=== PATIENT | female | born 1970 | race Caucasian/White ===

== ENCOUNTER 2018-09-27 05:33 | Day surgery (SDC) | payer BC ==
[2018-09-23 18:25] VITALS: BMI 27.4
--- NOTE | 2018-09-27 07:36 | HP ---
History & Physical Update - Physical Physical: No Change - Assessment Assessment: No Change - Plan Plan: No Change (H&P reviwed, no changes)
[2018-09-27] MEDS ORDERED: ROCURONIUM BROMIDE 50 MG/5 ML SYRINGE ONE (11:04)
[2018-09-27] MEDS ORDERED: fentaNYL CITRATE 250 MCG/5 ML VIAL ONE (11:04)
[2018-09-27] MEDS ORDERED: PROPOFOL 20 ML ONE (11:04)
[2018-09-27] MEDS ORDERED: MIDAZOLAM HCL 2 MG/2 ML SINGLE DOSE VIAL ONE (11:05)
[2018-09-27] MEDS ORDERED: KETOROLAC TROMETHAMINE 30 MG/1 ML VIAL ONE (11:54)
[2018-09-27] MEDS ORDERED: DEXAMETHASONE SOD PHOSPHATE 4 MG/1 ML VIAL ONE (11:54)
[2018-09-27] MEDS ORDERED: oxyCODONE HCL 5 MG TABLET PO PRN ×3 (12:14→12:56)
[2018-09-27] MEDS ORDERED: ONDANSETRON 4 MG/2 ML VIAL IVPUSH PRN ×2 (12:14→12:56)
[2018-09-27] MEDS ORDERED: LACTATED RINGERS SOLUTION 1,000 ML IV SCH (12:15)
[2018-09-27] MEDS ORDERED: ACETAMINOPHEN INJECTION 100 ML IVPB ONE (12:37)
[2018-09-27] MEDS ORDERED: ACETAMINOPHEN 1000 MG/100 ML VIAL (NON FORMULARY) IVPB ONE (12:50)
[2018-09-27] MEDS ORDERED: IBUPROFEN 600 MG TABLET (FP) PO PRN (12:56)
[2018-09-27] MEDS ORDERED: IBUPROFEN 800 MG/8 ML IJ IVPB PRN (12:56)
[2018-09-27] MEDS ORDERED: ELECTROLYTE-148 SOLN 1,000 ML IV SCH (13:00)
--- NOTE | 2018-09-27 13:00 | OP ---
Operative Note - Note: Operative Date: 09/27/18 Pre-Operative Diagnosis: EM polyp Operation: hysteroscopy , EM polypectomy Findings: endocervical and EM polyp, EM adhesions Electromechanisms Design Drafter: Alfonso Zavala Anesthesia: General Specimens Removed: EM polyp. EM curetting Estimated Blood Loss (mls): 50 Operative Report Dictated: Yes
[2018-09-27 16:37] VITALS: BP 123/79; PULSE 64; TEMP 97.9
--- NOTE | 2018-09-28 11:10 | OP ---
DATE OF OPERATION: 09/27/2018 PREOPERATIVE DIAGNOSIS: Endometrial polyp, rule out submucous myoma. POSTOPERATIVE DIAGNOSIS: Endometrial polyp and uterine adhesion. SURGEON: Alfonso Zavala MD ANESTHESIA: General. ESTIMATED BLOOD LOSS: 50 mL. PROCEDURE: Hysteroscopy, endometrial polypectomy, and dilatation and curettage. OPERATIVE REPORT: Patient was taken to the operating room under adequate general anesthesia in dorsal lithotomy position. Examination under anesthesia revealed external genitalia to be normal. Vagina was normal. Cervix was clean, no gross lesion. Uterus was normal size. Adnexa, no masses were palpable. Then, with a weighted speculum in the vagina, anterior lip of the cervix was grasped with a single-tooth tenaculum. Uterine cavity was sounded to 6 cm. Cervix was slightly dilated with Hegar dilator, and then, Symphion resectoscope was introduced. Visualization of the endocervical canal appeared to be normal. There was a polyp in the lower uterine segment, which first was resected and removed with the Symphion. Then, the hysteroscope was further advanced into the uterine cavity. There were adhesions secondary to previous endometrial ablation, but no other abnormalities were seen. The endometrium appeared to be atrophic. Patient tolerated the procedure well, left the OR in good condition. Aniyah [id number]
--- NOTE | 2018-09-29 17:16 | PATH ---
Surgical Pathology Report Patient Name: MARCO ANTONIO JIMENEZ [facility]. Rec. #: [id number] /Age/Gender: 1970 (Age: 47) / F Account: [id number] Location: [facility] SURGICAL Taken: 09/27/2018 Received: 09/27/2018 Reported: 09/29/2018 Physicians: Alfonso Zavala M.D. Specimen(s) Received A: ENDOMETRIAL CURETTINGS B: RESECTED POLYP Clinical History Endometrial polyp Final Diagnosis A. ENDOMETRIAL CURETTINGS, DILATION AND CURETTAGE: POLYPOID FRAGMENTS OF LOWER UTERINE SEGMENT, FIBROUS STROMA, ATROPHIC ENDOMETRIUM, AND BENIGN ENDOCERVICAL MUCOSA ADMIXED WITH BLOOD. B. RESECTED POLYP, POLYPECTOMY: BENIGN ENDOCERVICAL EPITHELIUM AND RARE POLYPOID STROMAL FRAGMENTS ADMIXED WITH BLOOD AND MUCUS. Electronically Signed Sue Ardon M.D. Gross Description A. Received in formalin labeled "endometrial curetting," is a 2.3 x 1.8 x 0.3 cm aggregate of epperson-brown soft tissue fragments admixed with blood clot. The formalin is filtered and the specimen is entirely submitted in one cassette. B. Received in formalin labeled "resected polyp," is a 0.4 x 0.4 x 0.1 cm aggregate of epperson soft tissue fragments admixed with mucus and blood clot. The specimen is submitted in toto in one cassette. /09/28/201809/28/2018
== END 2018-09-27 16:20 | disposition home or self-care (01) ==
LOC: JASU-SURG 05:33
PROVIDERS: ATTEND Obstetrics & Gynecology
PROC: 0UB98ZX Excision of Uterus, Via Natural or Artificial Opening Endoscopic, Diagnostic (ICD-10-PCS; principal; 2018-09-27 11:00)
PROC: 0UDB8ZX Extraction of Endometrium, Via Natural or Artificial Opening Endoscopic, Diagnostic (ICD-10-PCS; 2018-09-27 11:00)
DX: N84.0 Polyp of corpus uteri (principal); N85.6 Intrauterine synechiae
CPT/HCPCS: 84703; 88305-TC; 94760; J0131